=== PATIENT | female | born 1955 | race African-American/Black ===

== ENCOUNTER 2020-09-03 08:45 | Emergency (ER) | payer OTHER ==
[~2020-09-03] VITALS: Ht 167.6 cm; Wt 72.6 kg
[2020-09-03] MEDS ORDERED: FLEXERIL PO (10:38)
[2020-09-03] MEDS ORDERED: PREDNISONE50 MG PO (10:38)
[2020-09-03] MEDS ORDERED: NEURONTIN 300M300 M2 PO (10:38)
[2020-09-03] MEDS ORDERED: ONDANSETRON HCL8 MG PO (10:44)
[2020-09-03] MEDS ORDERED: DEXAMETHASONE4 MG PO (10:45)
[2020-09-03] MEDS ORDERED: ROXICODONE5 MG PO (10:45)
[2020-09-03] MEDS ORDERED: NORVASC10 MG PO (10:47)
[2020-09-03 10:48] VITALS: BP 152/76
== END 2020-09-03 10:48 | disposition home or self-care (01) ==
LOC: ER 08:45
DX: M54.42 Lumbago with sciatica, left side (principal); I10 Essential (primary) hypertension; Z88.8 Allergy status to other drugs, medicaments and biological substances